=== PATIENT | male | born 1990 | race American Indian/Alaskan Native ===

== ENCOUNTER 2017-02-21 10:25 | Observation (INO) | payer MEDICAID ==
[2017-02-21 10:28] VITALS: BMI 25.1
[2017-02-21 10:43] VITALS: O2SAT 100
[2017-02-21 10:51] LABS: ADD MANUAL DIFF? NO
[2017-02-21 10:59] LABS: BASO # 0.01 K/mm3 (0.0-2.0); BASO % 0.1 % (0.0-3.0); EOS # 0.1 (0.0-0.7); EOS % 0.9 % (1.5-5.0); GRAN # 6.27 (1.4-6.5); GRAN % 76.6 % (50.0-68.0); HEMATOCRIT 41.5 % (42.0-52.0); LYMPH % 12.7 % (22.0-35.0); MEAN CELL VOLUME 88.9 fL (80.0-105.0); MEAN CORPUSCULAR HEMOGLOBIN 30.8 pg (25.0-35.0); MEAN CORPUSCULAR HGB CONC 34.7 g/dl (31.0-37.0); MEAN PLATELET VOLUME 10.7 fl (7.0-11.0); MONO # 0.8 (0.1-0.6); MONO % 9.7 % (1.0-6.0); PLATELET COUNT 234 10^3/uL (120.0-450.0); RED CELL DISTRIBUTION WIDTH 13.3 % (11.5-14.5); WHITE BLOOD COUNT 8.2 10^3/ul (4.5-11.0)
[2017-02-21 11:05] LABS: BLOOD UREA NITROGEN 16 mg/dL (7-21); CALCIUM 9.9 mg/dL (8.4-10.5); CARBON DIOXIDE 27 mmol/L (21-33); CHLORIDE 104 mmol/L (98-107); GFR AFRICAN-AMERICAN > 60; GLUCOSE,RANDOM 84 mg/dL (70-110); POTASSIUM 3.9 mmol/L (3.6-5.0); SODIUM 141 mmol/L (132-148)
--- NOTE | 2017-02-21 11:33 | RAD ---
HISTORY: psych screen COMPARISON: No prior. FINDINGS: LUNGS: No active pulmonary disease. PLEURA: No significant pleural effusion identified, no pneumothorax apparent. CARDIOVASCULAR: Normal. OSSEOUS STRUCTURES: No significant abnormalities. VISUALIZED UPPER ABDOMEN: Normal. OTHER FINDINGS: None. IMPRESSION: No active disease.
[2017-02-21] MEDS ORDERED: Sodium Chloride 0.9% 1,000 ML IV STA (11:39)
[2017-02-21 11:50] LABS: PH,URINE 7.5 (4.7-8.0); URINE BILIRUBIN NEGATIVE (NEGATIVE); URINE BLOOD NEGATIVE (NEGATIVE); URINE GLUCOSE (UA) NEGATIVE (NEGATIVE); URINE KETONE NEGATIVE (NEGATIVE); URINE LEUKOCYTE ESTERASE NEGATIVE Leu/uL (NEGATIVE); URINE PROTEIN 30 mg/dL (<30 mg/dL)
[2017-02-21 11:53] LABS: URINE APPEARANCE CLEAR (CLEAR); URINE COLOR YELLOW (YELLOW)
[2017-02-21 12:13] LABS: URINE BACTERIA FEW (NEG); URINE EPITHELIAL CELLS 0 - 2 /hpf (0-5); URINE RBC NEGATIVE /hpf (0-2); URINE WBC 0 - 2 /hpf (0-6)
[2017-02-21] MEDS ORDERED: Iohexol 350 MG/100 ML VIAL ONE (12:16)
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
--- NOTE | 2017-02-21 15:20 | CARD ---
APPROVED REPORT EKG Measurement Heart [id number] <Conclusion> Normal sinus rhythm Normal ECG
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
[2017-02-21 15:46] LABS: INR 1.09 (0.93-1.08); PARTIAL THROMBOPLASTIN TIME 28.4 Seconds (23.7-30.8)
[2017-02-21] MEDS ORDERED: Multivitamin (MVI) 10 ML, Thiamine 100 MG, Folic Acid 1 MG in Sodium Chloride 0.9% 1,00... IV ONE (15:51)
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
[2017-02-21 16:52] LABS: ADD MANUAL DIFF? NO
[2017-02-21] MEDS ORDERED: Pneumococcal 23-Valent Vaccine IM ONE (16:57)
[2017-02-21 17:10] LABS: BASO # 0.01 K/mm3 (0.0-2.0); BASO % 0.1 % (0.0-3.0); EOS % 0.5 % (1.5-5.0); GRAN # 5.49 (1.4-6.5); HEMATOCRIT 39.8 % (42.0-52.0); LYMPH # 1.5 (1.2-3.4); LYMPH % 19.9 % (22.0-35.0); MEAN CORPUSCULAR HEMOGLOBIN 30.6 pg (25.0-35.0); MEAN CORPUSCULAR HGB CONC 34.4 g/dl (31.0-37.0); MEAN PLATELET VOLUME 10.8 fl (7.0-11.0); MONO # 0.7 (0.1-0.6); MONO % 8.5 % (1.0-6.0); PLATELET COUNT 239 10^3/uL (120.0-450.0); RED CELL DISTRIBUTION WIDTH 13.2 % (11.5-14.5); WHITE BLOOD COUNT 7.7 10^3/ul (4.5-11.0)
[2017-02-21 17:20] LABS: ALB/GLOB RATIO 1.5 (1.1-1.8); ALKALINE PHOSPHATASE 57 U/L (38-133); ALT/SGPT 35 U/L (7-56); AST/SGOT 21 U/L (15-59); BILIRUBIN,TOTAL 0.8 mg/dL (0.2-1.3); BLOOD UREA NITROGEN 11 mg/dL (7-21); CALCIUM 9.4 mg/dL (8.4-10.5); CARBON DIOXIDE 25 mmol/L (21-33); CHLORIDE 104 mmol/L (98-107); GFR AFRICAN-AMERICAN > 60; GLUCOSE,RANDOM 83 mg/dL (70-110); SODIUM 138 mmol/L (132-148); TOTAL PROTEIN 6.9 g/dL (5.8-8.3)
[2017-02-22 06:19] LABS: ADD MANUAL DIFF? NO
[2017-02-22 06:23] LABS: BASO # 0.02 K/mm3 (0.0-2.0); BASO % 0.3 % (0.0-3.0); EOS # 0.2 (0.0-0.7); EOS % 3.2 % (1.5-5.0); GRAN # 3.29 (1.4-6.5); GRAN % 53.3 % (50.0-68.0); HEMATOCRIT 39.5 % (42.0-52.0); LYMPH # 2.1 (1.2-3.4); LYMPH % 33.3 % (22.0-35.0); MEAN CELL VOLUME 89.8 fL (80.0-105.0); MEAN CORPUSCULAR HEMOGLOBIN 30.2 pg (25.0-35.0); MEAN CORPUSCULAR HGB CONC 33.7 g/dl (31.0-37.0); MEAN PLATELET VOLUME 10.4 fl (7.0-11.0); MONO # 0.6 (0.1-0.6); MONO % 9.9 % (1.0-6.0); PLATELET COUNT 224 10^3/uL (120.0-450.0); RED CELL DISTRIBUTION WIDTH 13.2 % (11.5-14.5); WHITE BLOOD COUNT 6.2 10^3/ul (4.5-11.0)
[2017-02-22 06:36] LABS: INR 1.12 (0.93-1.08); PARTIAL THROMBOPLASTIN TIME 30.3 Seconds (23.7-30.8)
[2017-02-22 06:57] LABS: ALB/GLOB RATIO 1.4 (1.1-1.8); ALKALINE PHOSPHATASE 50 U/L (38-133); ALT/SGPT 30 U/L (7-56); AST/SGOT 24 U/L (15-59); BLOOD UREA NITROGEN 11 mg/dL (7-21); CALCIUM 9.2 mg/dL (8.4-10.5); CARBON DIOXIDE 26 mmol/L (21-33); CHLORIDE 105 mmol/L (98-107); GFR AFRICAN-AMERICAN > 60; GLUCOSE,RANDOM 68 mg/dL (70-110); POTASSIUM 3.7 mmol/L (3.6-5.0); SODIUM 141 mmol/L (132-148); TOTAL PROTEIN 6.4 g/dL (5.8-8.3)
[2017-02-22 06:58] LABS: T4 6.1 ug/dL (5.5-11.0)
[2017-02-22 07:11] LABS: THYROID STIMULATING HORMONE 1.16 mIU/mL (0.46-4.68)
--- NOTE | 2017-02-22 08:14 | CP.PCM.PN ---
<Kandace Yang - Last Filed: 02/22/17 11:36> Subjective - Date & Time of Evaluation Date of Evaluation: 02/22/17 Time of Evaluation: 08:11 - Subjective Subjective: Gastroenterology Fellow/PGY4 Progress Note Patient denies rectal bleeding. No bowel movement. Nursing denies acute events overngiht. A 12-point review of systems negative except for as above. Objective - Vital Signs/Intake and Output Vital Signs (last 24 hours): Temp Pulse Resp BP Pulse Ox 98.2 F 62 16 122/72 100 02/21/17 16:42 02/22/17 06:00 02/21/17 16:42 02/21/17 16:42 02/21/17 16:37 Intake and Output: 02/22/17 02/22/17 06:59 18:59 Intake Total 1000 Balance 1000 - Medications Medications: Current Medications Lorazepam (Ativan) 2 mg IVP Q6 LISBETH PRN Reason: Protocol Last Admin: 02/22/17 06:08 Dose: Not Given Lorazepam (Ativan) 2 mg IVP Q2 PRN; Protocol PRN Reason: Anxiety Mirtazapine (Remeron) 15 mg PO HS LISBETH Last Admin: 02/21/17 22:33 Dose: 15 mg Ondansetron HCl (Zofran Inj) 4 mg IVP Q6 PRN PRN Reason: nausea Last Admin: 02/21/17 22:34 Dose: 4 mg Pantoprazole Sodium (Protonix Inj) 40 mg IVP Q12 LISBETH Last Admin: 02/21/17 22:33 Dose: 40 mg Polyethylene Glycol (Miralax) 17 gm PO DAILY [facility] Risperidone (Risperdal Tab) 1 mg PO BID LISBETH PRN Reason: Protocol Last Admin: 02/21/17 17:58 Dose: 1 mg - Labs Labs: 02/22/17 06:00 02/22/17 06:00 PT 12.1 Seconds (9.9-11.8) H 02/22/17 06:00 INR 1.12 (0.93-1.08) H 02/22/17 06:00 APTT 30.3 Seconds (23.7-30.8) 02/22/17 06:00 - Constitutional Appears: Non-toxic, No Acute Distress - Head Exam Head Exam: ATRAUMATIC, NORMOCEPHALIC - Eye Exam Eye Exam: EOMI, PERRL Pupil Exam: PERRL. absent: Miosis, Mydriatic - ENT Exam ENT Exam: Mucous Membranes Moist, Normal Oropharynx - Neck Exam Neck Exam: Full ROM, Normal Inspection - Respiratory Exam Respiratory Exam: Clear to Ausculation Bilateral. absent: Rales, Rhonchi, Wheezes - Cardiovascular Exam Cardiovascular Exam: RRR, +S1, +S2. absent: Gallop, Rubs - GI/Abdominal Exam GI & Abdominal Exam: Soft, Normal Bowel Sounds. absent: Distended, Firm, Guarding, Rigid, Tenderness, Organomegaly, Rebound - Rectal Exam Rectal Exam: Hemorrhoids. absent: Black Stool, Bloody Stool, Fecal Impaction Additional comments: internal hemorrhoids - Extremities Exam Extremities Exam: Full ROM. absent: Pedal Edema - Neurological Exam Neurological Exam: Alert, Awake - Psychiatric Exam Psychiatric exam: Normal Affect, Normal Mood - Skin Skin Exam: Dry, Intact, Normal Color, Warm Assessment and Plan - Assessment and Plan (Free Text) Assessment: 26 year old male with history of Major Depressive disorder and Schizophrenia presenting with rectal bleeding. CT A/P showed diverticulosis. GI consultation for hematochezia. No prior EGD or colonoscopy. Plan: >likely secondary to hemorrhoids >H/H stable >hemodynamically stable >no signs of GI blood loss >counselled on increased fiber and water intake >counselled on alcohol and illicit drug cessation >Anusol RC BID >outpatient GI follow up for elective colonoscopy if symptoms persist despite Anusol therapy <Alex Hodge - Last Filed: 02/22/17 14:40> Objective - Vital Signs/Intake and Output Vital Signs (last 24 hours): Temp Pulse Resp BP Pulse Ox 98.7 F 113 H 20 129/97 H 100 02/22/17 09:59 02/22/17 10:00 02/22/17 09:59 02/22/17 09:59 02/22/17 09:59 Intake and Output: 02/22/17 02/22/17 06:59 18:59 Intake Total 1000 480 Balance 1000 480 - Medications Medications: Current Medications Hydrocortisone (Anusol-Hc) 25 mg RC BID [facility] Last Admin: 02/22/17 12:24 Dose: 25 mg Lorazepam (Ativan) 2 mg IVP Q6 LISBETH PRN Reason: Protocol Last Admin: 02/22/17 12:24 Dose: 2 mg Lorazepam (Ativan) 2 mg IVP Q2 PRN; Protocol PRN Reason: Anxiety Mirtazapine (Remeron) 15 mg PO HS [facility] Last Admin: 02/21/17 22:33 Dose: 15 mg Ondansetron HCl (Zofran Inj) 4 mg IVP Q6 PRN PRN Reason: nausea Last Admin: 02/21/17 22:34 Dose: 4 mg Pantoprazole Sodium (Protonix Inj) 40 mg IVP Q12 [facility] Last Admin: 02/22/17 10:58 Dose: 40 mg Polyethylene Glycol (Miralax) 17 gm PO DAILY [facility] Last Admin: 02/22/17 11:01 Dose: Not Given Risperidone (Risperdal Tab) 1 mg PO BID LISBETH PRN Reason: Protocol Last Admin: 02/22/17 10:58 Dose: 1 mg - Labs Labs: 02/22/17 06:00 02/22/17 06:00 PT 12.1 Seconds (9.9-11.8) H 02/22/17 06:00 INR 1.12 (0.93-1.08) H 02/22/17 06:00 APTT 30.3 Seconds (23.7-30.8) 02/22/17 06:00 Attending/Attestation - Attestation I have personally seen and examined this patient.: Yes I have fully participated in the care of the patient.: Yes I have reviewed all pertinent clinical information, including history, physical exam and plan: Yes Notes (Text): 02/22/17 14:37 I have seen and examined patient with GI fellow. No acute events overnight. He is seen resting in bed comfortably. He denies abdominal pain, nausea, vomiting, fever/chills, or recurrent rectal bleeding. Depression / schizophrenia Rectal bleeding - digital rectal exam performed by me shows internal hemorrhoids , normal anal sphincter tone, no blood/stool in rectal vault - Diet as tolerated - Anusol suppository therapy for relief of suspected hemorrhoidal bleeding, no worrisome or alarm features on exam today - H/H stable, continue to monitor - No planned GI intervention, suggest outpatient follow up. Will sign off case , please reconsult as necessary, thank you.
[2017-02-22] MEDS ORDERED: POLYETHYLENE GLYCOL 3350 17 GM/Dose PACKET PO SCH (10:00)
[2017-02-22 10:06] VITALS: BP 129/97; RESP 20; TEMP 98.7
[2017-02-22 11:39] VITALS: PULSE 113
[2017-02-22] MEDS ORDERED: Hydrocortisone 2.5% Rectal Cream(30 gm) PR SCH (11:45)
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
== END 2017-02-22 14:48 | disposition home or self-care (01) ==
LOC: ED 10:25 → ERH 14:53 → 3RNO 17:09
PROVIDERS: ADMIT Hospitalist; ATTEND Hospitalist
DX: K62.5 Hemorrhage of anus and rectum (principal); F20.9 Schizophrenia, unspecified; F32.9 Major depressive disorder, single episode, unspecified; F12.90 Cannabis use, unspecified, uncomplicated; F10.239 Alcohol dependence with withdrawal, unspecified; R63.4 Abnormal weight loss; N28.1 Cyst of kidney, acquired; K57.90 Diverticulosis of intestine, part unspecified, without perforation or abscess without bleeding; K64.8 Other hemorrhoids; Z91.19 Patient's noncompliance with other medical treatment and regimen
CPT/HCPCS: 36415; 71010; 74177; 80048; 80053; 80320; 80324; 80329; 80345; 80346; 80349; 80353; 80358; 80361; 81001; 83992; 84436; 84443; 85025; 85610; 85730; 87390; 90791; 93005; 96374; 96375; 96376; 99285; C9113; G0378; J2060; J2405; J3411; J7040; Q9967

== ENCOUNTER 2017-07-05 16:19 | Emergency (ER) | payer MEDICAID ==
[2017-07-05 16:27] VITALS: BMI 24.4
[2017-07-05 16:51] VITALS: BP 104/78; PULSE 80; RESP 18; TEMP 98.7
[2017-07-05 16:54] VITALS: O2SAT 98
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
== END 2017-07-05 16:54 | disposition home or self-care (01) ==
LOC: ED 16:19
DX: S90.852A Superficial foreign body, left foot, initial encounter (principal); X58.XXXA Exposure to other specified factors, initial encounter; Y93.89 Activity, other specified; Y92.89 Other specified places as the place of occurrence of the external cause

== ENCOUNTER 2017-10-22 22:22 | Emergency (ER) | payer MEDICAID ==
[2017-10-22 22:23] VITALS: BMI 24.4
[2017-10-22 22:42] VITALS: BP 157/90; PULSE 60; RESP 20; TEMP 98; O2SAT 98
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
== END 2017-10-22 23:19 ==
LOC: ED 22:22
DX: Z02.89 Encounter for other administrative examinations (principal)